=== PATIENT | male | born 1970 | race African-American/Black ===

== ENCOUNTER 2017-03-16 12:32 | Emergency (ER) | payer BC ==
[2017-03-16] MEDS ORDERED: Ketorolac Tromethamine 30 MG/ML VIAL ONE (13:11)
== END 2017-03-16 13:34 | disposition home or self-care (01) ==
LOC: ERS 12:32
DX: G89.29 Other chronic pain (principal); M79.672 Pain in left foot; Z71.6 Tobacco abuse counseling; F17.210 Nicotine dependence, cigarettes, uncomplicated
CPT/HCPCS: 96372; 99406; J1885

== ENCOUNTER 2019-10-21 14:34 | Emergency (ER) | payer BC ==
[2019-10-21] MEDS ORDERED: Ibuprofen 200 MG TAB ONE (15:29)
[2019-10-21] MEDS ORDERED: Acetaminophen 500 MG TAB ONE (15:29)
== END 2019-10-21 15:36 | disposition home or self-care (01) ==
LOC: ERS 14:34
DX: L30.9 Dermatitis, unspecified (principal); F17.210 Nicotine dependence, cigarettes, uncomplicated
CPT/HCPCS: 99282

== ENCOUNTER 2020-03-06 12:12 | Emergency (ER) | payer SELFPAY ==
[2020-03-06] MEDS ORDERED: Ibuprofen 200 MG TAB ONE (13:10)
== END 2020-03-06 13:10 | disposition home or self-care (01) ==
LOC: ERS 12:12
DX: M25.562 Pain in left knee (principal); M25.521 Pain in right elbow; M19.90 Unspecified osteoarthritis, unspecified site; F17.210 Nicotine dependence, cigarettes, uncomplicated
CPT/HCPCS: 99283

== ENCOUNTER 2020-10-02 18:36 | Inpatient (IN) | payer MEDICARE, MEDICAID ==
[2020-10-02 19:10] LABS: #Basophils 0.1 thou/uL (0.0-0.2); #Eosinphils 0.2 thou/uL (0.0-0.7); #Lymphocytes 2.6 thou/uL (1.20-3.40); #Monocytes 1.9 thou/uL (0.11-0.59); #Neutrophils 9.6 thou/uL (1.40-6.50); %Basophils 0.5 % (0.0-1.0); %Eosinophils 1.1 % (0.0-10.0); %Lymphocytes 18.2 % (21.0-51.0); %Monocytes 13.4 % (0.0-10.0); %Neutrophils 66.9 % (42.0-75.0); Hemoglobin 9.8 g/dL (14.0-18.0); Mean Corpuscular HGB CONC 33.8 g/dL (32.0-36.0); Mean Corpuscular Hemoglobin 26.3 pg (27.0-31.0); Mean Corpuscular Volume 77.7 fL (78.0-98.0); Mean Platelet Volume 6.9 fL (7.4-10.4); Platelet Count 935 thou/uL (130-400); RBC Distribution Width 16.8 % (11.5-14.5); Red Blood Cell (RBC) Count 3.73 mill/uL (4.70-6.10); White Blood Cell (WBC) Count 14.4 thou/uL (4.8-10.8)
[2020-10-02] MEDS ORDERED: Ketorolac Tromethamine 30 MG/ML VIAL ONE (19:10)
[2020-10-02 19:21] LABS: ALT (SGPT) 20 U/L (8-55); AST (SGOT) 14 U/L (5-34); Albumin 3.5 g/dL (3.5-5.0); Alkaline Phosphatase 71 U/L (40-110); Anion Gap 17 mmol/L (10-20); BUN (Urea Nitrogen) 15 mg/dL (8.4-25.7); Bilirubin, Total 0.4 mg/dL (0.2-1.2); Calc. Creatinine Clearance 0 mL/min (70-130); Calcium 9.6 mg/dL (7.8-10.44); Carbon Dioxide 24 mmol/L (22-29); Chloride 101 mmol/L (98-107); Globulin 4.6 g/dL (2.4-3.5); Glucose 82 mg/dL (70-105); Potassium 3.5 mmol/L (3.5-5.1); Protein, Total 8.1 g/dL (6.0-8.3); Sodium 138 mmol/L (136-145)
[2020-10-02 19:27] LABS: Hypochromia SLIGHT = 6-15 cells (100X) (0-5/hpf); MDiff Complete? YES; Microcytosis SLIGHT = 6-15 cells (100X) (0-5/hpf); Platelet Morphology Comment Appears Increased; Polychromasia SLIGHT = 2-3 cells (100X) (0-2/hpf)
[2020-10-02] MEDS ORDERED: Ondansetron PF 4 MG/2 ML Vial IVP PRN (23:24)
[2020-10-02] MEDS ORDERED: hydrALAZINE 20 MG/ML VIAL SLOW IVP PRN (23:24)
[2020-10-02] MEDS ORDERED: Labetalol HCl 100 MG/20 ML VIAL SLOW IVP PRN (23:24)
[2020-10-02] MEDS ORDERED: Promethazine HCl 12.5 MG in Sodium Chloride 0.9% 50 ML IVPB PRN (23:24)
[2020-10-02] MEDS ORDERED: cloNIDine 0.1 MG TAB PO PRN (23:24)
[2020-10-02] MEDS ORDERED: Electrolyte Replacement Protocol 1 EACH FS PRN (23:30)
[2020-10-03 01:03] VITALS: BMI 21.1
[2020-10-03 06:03] LABS: #Basophils 0.1 thou/uL (0.0-0.2); #Eosinphils 0.2 thou/uL (0.0-0.7); #Lymphocytes 2.5 thou/uL (1.20-3.40); #Monocytes 1.8 thou/uL (0.11-0.59); %Basophils 0.5 % (0.0-1.0); %Eosinophils 1.4 % (0.0-10.0); %Monocytes 14.4 % (0.0-10.0); %Neutrophils 63.8 % (42.0-75.0); Hemoglobin 9.3 g/dL (14.0-18.0); Mean Corpuscular HGB CONC 32.4 g/dL (32.0-36.0); Mean Corpuscular Hemoglobin 25.2 pg (27.0-31.0); Mean Corpuscular Volume 77.9 fL (78.0-98.0); Platelet Count 888 thou/uL (130-400); RBC Distribution Width 16.9 % (11.5-14.5); White Blood Cell (WBC) Count 12.6 thou/uL (4.8-10.8)
[2020-10-03] MEDS ORDERED: Potassium Chloride 20 MEQ TAB PO SCH (06:30)
[2020-10-03 06:33] LABS: Anion Gap 12 mmol/L (10-20); BUN (Urea Nitrogen) 15 mg/dL (8.4-25.7); CRP (Inflammatory) 14.62 mg/dL (= or < 0.5); Calc. Creatinine Clearance 120 mL/min (70-130); Calcium 9.2 mg/dL (7.8-10.44); Carbon Dioxide 26 mmol/L (22-29); Chloride 102 mmol/L (98-107); Glucose 80 mg/dL (70-105); Potassium 3.7 mmol/L (3.5-5.1); Sodium 136 mmol/L (136-145); Uric Acid 6.7 mg/dL (3.5-7.2)
[2020-10-03 08:50] LABS: Complement-C4 45.5 mg/dL (15-53)
[2020-10-03] MEDS: Potassium Chloride 20 MEQ TAB PO SCH ×2 (08:51→08:59)
[2020-10-03] MEDS: Famotidine 20 MG TAB PO SCH ×2 (08:53→20:15)
[2020-10-03] MEDS: pyridOXINE 50 MG (B6) TAB PO SCH (08:53)
[2020-10-03] MEDS: Cyanocobalamin (Vitamin B-12) 1,000 MCG TAB PO SCH (08:53)
[2020-10-03] MEDS: Thiamine 100 MG TAB PO SCH (08:53)
[2020-10-03] MEDS: Ascorbic Acid 500 mg Chewable Tablet PO SCH (08:53)
[2020-10-03] MEDS: Cholecalciferol 1,000 UNITS (25 MCG) TAB PO SCH (08:54)
[2020-10-03] MEDS: Multivit, Therapeutic 1 TAB PO SCH (08:54)
[2020-10-03] MEDS: Vitamin A 10,000 UNITS CAP PO SCH (08:54)
[2020-10-03] MEDS: Acetaminophen 325 MG TAB PO PRN (09:02)
[2020-10-03 09:04] LABS: HBSAg Index 0.21 S/CO (0-0.99); Hep A IgM AB Non-Reactive (NonReactive); Hep A IgM S/CO 0.25 S/CO (0-0.79); Hep B Surf Ag Non-Reactive S/CO (NonReactive); Hep C IgG Ab Non-Reactive (NonReactive)
[2020-10-03 09:07] LABS: Syphilis Antibody Index 2.02 S/CO (<1.00 Non-Reactive)
[2020-10-03 09:24] LABS: HBCM Index 1.73 S/CO (0-0.79); Hepatitis B Core IgM Abs Reactive (NonReactive)
[2020-10-03 12:14] LABS: SARS-CoV-2 PCR by NAA Not Detected (NotDetected)
[2020-10-03 12:21] LABS: Syphilis Antibody INDETERMINATE (Nonreactive)
[2020-10-03] MEDS: Ibuprofen 200 MG TAB PO PRN ×2 (13:41→20:16)
[2020-10-03 18:24] LABS: Bacteria/HPF None Seen HPF (None Seen); Bilirubin Negative (Negative); Blood, Urine Negative (Negative); Clarity Clear (Clear); Glucose, Urine (Dipstick) Normal (Negative); Ketone, Urine Negative (Negative); Leukocyte 250 Leu/uL (Negative); Nitrite Negative (Negative); Protein, Urine (Dipstick) 10 mg/dL (Neg-Trace); RBC/HPF 0-3 HPF (0-3); Specific Gravity, Urine 1.019 (1.002-1.036); Squamous Epithelial 0-3 HPF (0-3)
[2020-10-03 18:26] LABS: Urine Culture Reflex Yes Yes
[2020-10-03 20:12] LABS: HBSAg Index 0.19 S/CO (0-0.99); Hep B Surf Ag Non-Reactive S/CO (NonReactive)
[2020-10-03] MEDS: Enoxaparin Sodium 40 MG/0.4 ML SYRINGE SC SCH (20:15)
[2020-10-03 20:20] LABS: HBSAB Concentration 835.63 mIU/mL; Hep B Surf AB Reactive (NonReactive)
[2020-10-04 00:55] LABS: Hep B Core Total Ab Reactive (NonReactive)
[2020-10-04 01:02] LABS: Hep B Core Total Index 7.35 S/CO (0-0.79)
[2020-10-04] MEDS: Ibuprofen 200 MG TAB PO PRN (04:21)
[2020-10-04] MEDS: Ascorbic Acid 500 mg Chewable Tablet PO SCH (07:58)
[2020-10-04] MEDS: Cholecalciferol 1,000 UNITS (25 MCG) TAB PO SCH (07:58)
[2020-10-04] MEDS: Multivit, Therapeutic 1 TAB PO SCH (07:58)
[2020-10-04] MEDS: Cyanocobalamin (Vitamin B-12) 1,000 MCG TAB PO SCH (07:59)
[2020-10-04] MEDS: Vitamin A 10,000 UNITS CAP PO SCH (07:59)
[2020-10-04] MEDS: pyridOXINE 50 MG (B6) TAB PO SCH (07:59)
[2020-10-04] MEDS: Famotidine 20 MG TAB PO SCH ×2 (07:59→21:37)
[2020-10-04] MEDS: Thiamine 100 MG TAB PO SCH (07:59)
[2020-10-04] MEDS: HYDROcodone/Acetaminophen 5/325 mg Tablet PO PRN ×2 (13:50→17:55)
[2020-10-04 17:48] LABS: HIV (1/2) Antibody/Antigen Non-Reactive (NonReactive); HIV 1/2 INDEX 0.08 S/CO (<1.00)
[2020-10-04] MEDS: Clobetasol 0.05% Cream 15 gm Tube TOP SCH (21:37)
[2020-10-04] MEDS: CeleCOXIB 100 MG CAP PO SCH (21:37)
[2020-10-04] MEDS: Enoxaparin Sodium 40 MG/0.4 ML SYRINGE SC SCH (21:38)
[2020-10-05] MEDS: Ascorbic Acid 500 mg Chewable Tablet PO SCH (08:32)
[2020-10-05] MEDS: Aspirin 81 mg Enteric Coated Tablet PO SCH (08:33)
[2020-10-05] MEDS: CeleCOXIB 100 MG CAP PO SCH ×2 (08:33→21:36)
[2020-10-05] MEDS: Cholecalciferol 1,000 UNITS (25 MCG) TAB PO SCH (08:35)
[2020-10-05] MEDS: Cyanocobalamin (Vitamin B-12) 1,000 MCG TAB PO SCH (08:36)
[2020-10-05] MEDS: Clobetasol 0.05% Cream 15 gm Tube TOP SCH ×2 (08:36→21:36)
[2020-10-05] MEDS: Famotidine 20 MG TAB PO SCH ×2 (08:37→21:37)
[2020-10-05] MEDS: Multivit, Therapeutic 1 TAB PO SCH (08:37)
[2020-10-05] MEDS: Thiamine 100 MG TAB PO SCH (08:38)
[2020-10-05] MEDS: pyridOXINE 50 MG (B6) TAB PO SCH (08:38)
[2020-10-05] MEDS: HYDROcodone/Acetaminophen 5/325 mg Tablet PO PRN ×2 (12:04→21:52)
[2020-10-05 16:02] LABS: ANA Symphony (Qualitative) Negative (Negative); ANA Symphony (Quantitative) 0.2 Ratio (< 0.7 Negative); CCP IgG Antibody 0.7 EliAU/mL (<7 Negative); EliA RAS New Method **** NEW METHOD ****; Rheumatoid Factor IgA Antibody 6.7 IU/mL (<14 Negative); Rheumatoid Factor IgM Antibody 0.7 IU/mL (<3.5 Negative); dsDNA IgG Antibody 1.5 IU/mL (<10 Negative)
[2020-10-05 17:09] LABS: EliA Vaculitis New Method **** NEW METHOD ****
[2020-10-05] MEDS: Enoxaparin Sodium 40 MG/0.4 ML SYRINGE SC SCH (21:36)
[2020-10-06 06:32] LABS: #Basophils 0.1 thou/uL (0.0-0.2); #Eosinphils 0.3 thou/uL (0.0-0.7); #Lymphocytes 2.4 thou/uL (1.20-3.40); #Monocytes 1.7 thou/uL (0.11-0.59); #Neutrophils 8.2 thou/uL (1.40-6.50); %Basophils 0.4 % (0.0-1.0); %Eosinophils 2.6 % (0.0-10.0); %Lymphocytes 18.9 % (21.0-51.0); %Monocytes 13.7 % (0.0-10.0); %Neutrophils 64.5 % (42.0-75.0); Hemoglobin 9.2 g/dL (14.0-18.0); Mean Corpuscular Hemoglobin 25.1 pg (27.0-31.0); Mean Corpuscular Volume 78.3 fL (78.0-98.0); Platelet Count 912 thou/uL (130-400); Red Blood Cell (RBC) Count 3.66 mill/uL (4.70-6.10); White Blood Cell (WBC) Count 12.7 thou/uL (4.8-10.8)
[2020-10-06 06:51] LABS: Anion Gap 15 mmol/L (10-20); BUN (Urea Nitrogen) 12 mg/dL (8.4-25.7); Calc. Creatinine Clearance 134 mL/min (70-130); Calcium 9.1 mg/dL (7.8-10.44); Carbon Dioxide 23 mmol/L (22-29); Chloride 101 mmol/L (98-107); Glucose 87 mg/dL (70-105); Potassium 3.4 mmol/L (3.5-5.1); Sodium 136 mmol/L (136-145)
[2020-10-06] MEDS ORDERED: Potassium Chloride 20 MEQ TAB PO SCH (08:15)
[2020-10-06] MEDS: Aspirin 81 mg Enteric Coated Tablet PO SCH (09:39)
[2020-10-06] MEDS: CeleCOXIB 100 MG CAP PO SCH ×2 (09:39→22:16)
[2020-10-06] MEDS: Ascorbic Acid 500 mg Chewable Tablet PO SCH (09:40)
[2020-10-06] MEDS: Cholecalciferol 1,000 UNITS (25 MCG) TAB PO SCH (09:40)
[2020-10-06] MEDS: Multivit, Therapeutic 1 TAB PO SCH (09:41)
[2020-10-06] MEDS: Thiamine 100 MG TAB PO SCH (09:41)
[2020-10-06] MEDS: Cyanocobalamin (Vitamin B-12) 1,000 MCG TAB PO SCH (09:41)
[2020-10-06] MEDS: Famotidine 20 MG TAB PO SCH ×2 (09:41→22:17)
[2020-10-06] MEDS: pyridOXINE 50 MG (B6) TAB PO SCH (09:41)
[2020-10-06 11:12] LABS: HBV as IU/mL HBV DNA not detected IU/mL (.); Hep B Surface AG-Rflx Sendout Negative (Negative); Hepatitis B Core Total Positive (Negative); Hepatitis B Surface AB-Sendout Reactive (.)
[2020-10-06] MEDS ORDERED: Betamethasone 0.1% Cream 15 GM TUBE TOP SCH (11:15)
[2020-10-06] MEDS: Clobetasol 0.05% Cream 15 gm Tube TOP SCH (14:03)
[2020-10-06] MEDS: HYDROcodone/Acetaminophen 5/325 mg Tablet PO PRN (14:25)
[2020-10-06] MEDS: Enoxaparin Sodium 40 MG/0.4 ML SYRINGE SC SCH (22:17)
[2020-10-06] MEDS: Betamethasone 0.1% Cream 15 GM TUBE TOP SCH (22:57)
[2020-10-07] MEDS: Betamethasone 0.1% Cream 15 GM TUBE TOP SCH ×3 (01:37→21:03)
[2020-10-07] MEDS: HYDROcodone/Acetaminophen 5/325 mg Tablet PO PRN (07:14)
[2020-10-07] MEDS: pyridOXINE 50 MG (B6) TAB PO SCH (08:36)
[2020-10-07] MEDS: CeleCOXIB 100 MG CAP PO SCH ×2 (08:36→21:00)
[2020-10-07] MEDS: Aspirin 81 mg Enteric Coated Tablet PO SCH (08:38)
[2020-10-07] MEDS: Thiamine 100 MG TAB PO SCH (08:38)
[2020-10-07] MEDS: Multivit, Therapeutic 1 TAB PO SCH (08:39)
[2020-10-07] MEDS: Cyanocobalamin (Vitamin B-12) 1,000 MCG TAB PO SCH (08:39)
[2020-10-07] MEDS: Cholecalciferol 1,000 UNITS (25 MCG) TAB PO SCH (08:39)
[2020-10-07] MEDS: Ascorbic Acid 500 mg Chewable Tablet PO SCH (08:39)
[2020-10-07] MEDS: Famotidine 20 MG TAB PO SCH ×2 (08:39→21:01)
[2020-10-07] MEDS: HYDROcodone/Acetaminophen 10/325 mg Tablet PO PRN (15:57)
[2020-10-07] MEDS: Enoxaparin Sodium 40 MG/0.4 ML SYRINGE SC SCH (21:01)
[2020-10-08] MEDS: HYDROcodone/Acetaminophen 10/325 mg Tablet PO PRN ×2 (05:22→08:59)
[2020-10-08] MEDS: CeleCOXIB 100 MG CAP PO SCH ×2 (08:49→20:54)
[2020-10-08] MEDS: Multivit, Therapeutic 1 TAB PO SCH (08:51)
[2020-10-08] MEDS: Famotidine 20 MG TAB PO SCH ×2 (08:51→20:54)
[2020-10-08] MEDS: Ascorbic Acid 500 mg Chewable Tablet PO SCH (08:52)
[2020-10-08] MEDS: Aspirin 81 mg Enteric Coated Tablet PO SCH (08:52)
[2020-10-08] MEDS: pyridOXINE 50 MG (B6) TAB PO SCH (08:52)
[2020-10-08] MEDS: Cyanocobalamin (Vitamin B-12) 1,000 MCG TAB PO SCH (08:52)
[2020-10-08] MEDS: Thiamine 100 MG TAB PO SCH (08:52)
[2020-10-08] MEDS: Cholecalciferol 1,000 UNITS (25 MCG) TAB PO SCH (08:52)
[2020-10-08] MEDS: Betamethasone 0.1% Cream 15 GM TUBE TOP SCH ×2 (08:53→20:55)
[2020-10-08 10:42] LABS: Fungus Stain Final report (.)
[2020-10-08] MEDS: Enoxaparin Sodium 40 MG/0.4 ML SYRINGE SC SCH (20:55)
[2020-10-08] MEDS: Acetaminophen 325 MG TAB PO PRN (20:56)
[2020-10-08 21:36] LABS: QuantiFERON-TB Gold Plus Negative (Negative)
[2020-10-09] MEDS: HYDROcodone/Acetaminophen 10/325 mg Tablet PO PRN ×3 (00:17→15:07)
[2020-10-09 08:39] LABS: Hemoglobin 10.1 g/dL (14.0-18.0); Mean Corpuscular HGB CONC 32.2 g/dL (32.0-36.0); Mean Corpuscular Hemoglobin 25.1 pg (27.0-31.0); Mean Corpuscular Volume 78.1 fL (78.0-98.0); Platelet Count 962 thou/uL (130-400); RBC Distribution Width 16.9 % (11.5-14.5); White Blood Cell (WBC) Count 20.2 thou/uL (4.8-10.8)
[2020-10-09 08:46] LABS: Anion Gap 17 mmol/L (10-20); BUN (Urea Nitrogen) 9 mg/dL (8.4-25.7); Calc. Creatinine Clearance 134 mL/min (70-130); Carbon Dioxide 23 mmol/L (22-29); Chloride 98 mmol/L (98-107); Glucose 77 mg/dL (70-105); Sodium 134 mmol/L (136-145)
[2020-10-09] MEDS: Aspirin 81 mg Enteric Coated Tablet PO SCH (08:54)
[2020-10-09] MEDS: Ascorbic Acid 500 mg Chewable Tablet PO SCH (08:55)
[2020-10-09] MEDS: CeleCOXIB 100 MG CAP PO SCH ×2 (08:56→20:26)
[2020-10-09 08:58] LABS: Band 2 % (5-11); Eosinophils 4 % (0-10); Lymphocytes 15 % (21-51); MDiff Complete? YES; Metamyelocyte 1 % (0-0); Microcytosis SLIGHT = 6-15 cells (100X) (0-5/hpf); Monocytes 5 % (0-10); Neutrophil 70 % (42-75); Platelet Morphology Comment Appears Increased; Polychromasia SLIGHT = 2-3 cells (100X) (0-2/hpf); Reactive Lymphocytes 3 % (0-10); Vacuoles SLIGHT
[2020-10-09] MEDS: pyridOXINE 50 MG (B6) TAB PO SCH (08:58)
[2020-10-09] MEDS: Thiamine 100 MG TAB PO SCH (08:58)
[2020-10-09] MEDS: Cyanocobalamin (Vitamin B-12) 1,000 MCG TAB PO SCH (08:58)
[2020-10-09] MEDS: Multivit, Therapeutic 1 TAB PO SCH (08:58)
[2020-10-09] MEDS: Famotidine 20 MG TAB PO SCH ×2 (08:58→20:27)
[2020-10-09] MEDS: Cholecalciferol 1,000 UNITS (25 MCG) TAB PO SCH (08:59)
[2020-10-09] MEDS: Betamethasone 0.1% Cream 15 GM TUBE TOP SCH ×2 (09:00→10:00)
[2020-10-09] MEDS: Enoxaparin Sodium 40 MG/0.4 ML SYRINGE SC SCH (20:27)
[2020-10-09] MEDS ORDERED: diphenhydrAMINE 50 MG/ML VIAL IVP SCH (21:30)
[2020-10-09] MEDS ORDERED: Acetaminophen 500 MG TAB PO SCH (21:30)
[2020-10-09] MEDS ORDERED: SODIUM CHLORIDE 0.9% IV SCH (21:30)
[2020-10-09] MEDS ORDERED: INFLIXIMAB DYYB IV SCH (21:30)
[2020-10-09] MEDS ORDERED: methylPREDNISolone Sod Succ 40 MG VIAL IVP SCH (21:45)
[2020-10-10] MEDS: Betamethasone 0.1% Cream 15 GM TUBE TOP SCH ×3 (01:28→20:39)
[2020-10-10] MEDS: Cyanocobalamin (Vitamin B-12) 1,000 MCG TAB PO SCH (08:00)
[2020-10-10] MEDS: Multivit, Therapeutic 1 TAB PO SCH (08:00)
[2020-10-10] MEDS: Cholecalciferol 1,000 UNITS (25 MCG) TAB PO SCH (08:00)
[2020-10-10] MEDS: Ascorbic Acid 500 mg Chewable Tablet PO SCH (08:00)
[2020-10-10] MEDS: CeleCOXIB 100 MG CAP PO SCH ×2 (08:01→20:29)
[2020-10-10] MEDS: Thiamine 100 MG TAB PO SCH (08:01)
[2020-10-10] MEDS: Famotidine 20 MG TAB PO SCH ×2 (08:01→20:29)
[2020-10-10] MEDS: pyridOXINE 50 MG (B6) TAB PO SCH (08:01)
[2020-10-10] MEDS: Aspirin 81 mg Enteric Coated Tablet PO SCH (08:02)
[2020-10-10] MEDS: HYDROcodone/Acetaminophen 10/325 mg Tablet PO PRN (08:11)
[2020-10-10] MEDS: Enoxaparin Sodium 40 MG/0.4 ML SYRINGE SC SCH (20:39)
[2020-10-11] MEDS: HYDROcodone/Acetaminophen 10/325 mg Tablet PO PRN ×2 (04:56→17:44)
[2020-10-11] MEDS: Cholecalciferol 1,000 UNITS (25 MCG) TAB PO SCH (08:18)
[2020-10-11] MEDS: Cyanocobalamin (Vitamin B-12) 1,000 MCG TAB PO SCH (08:18)
[2020-10-11] MEDS: CeleCOXIB 100 MG CAP PO SCH ×2 (08:18→21:28)
[2020-10-11] MEDS: Betamethasone 0.1% Cream 15 GM TUBE TOP SCH ×2 (08:18→21:29)
[2020-10-11] MEDS: Ascorbic Acid 500 mg Chewable Tablet PO SCH (08:19)
[2020-10-11] MEDS: Multivit, Therapeutic 1 TAB PO SCH (08:19)
[2020-10-11] MEDS: Aspirin 81 mg Enteric Coated Tablet PO SCH (08:20)
[2020-10-11] MEDS: Famotidine 20 MG TAB PO SCH ×2 (08:20→21:29)
[2020-10-11] MEDS: Thiamine 100 MG TAB PO SCH (08:20)
[2020-10-11] MEDS: Enoxaparin Sodium 40 MG/0.4 ML SYRINGE SC SCH (21:29)
[2020-10-12] MEDS: Ascorbic Acid 500 mg Chewable Tablet PO SCH (08:30)
[2020-10-12] MEDS: HYDROcodone/Acetaminophen 10/325 mg Tablet PO PRN (08:30)
[2020-10-12] MEDS: Aspirin 81 mg Enteric Coated Tablet PO SCH (08:30)
[2020-10-12] MEDS: CeleCOXIB 100 MG CAP PO SCH ×2 (08:30→21:14)
[2020-10-12] MEDS: Multivit, Therapeutic 1 TAB PO SCH (08:31)
[2020-10-12] MEDS: Cyanocobalamin (Vitamin B-12) 1,000 MCG TAB PO SCH (08:31)
[2020-10-12] MEDS: Famotidine 20 MG TAB PO SCH ×2 (08:31→21:15)
[2020-10-12] MEDS: Betamethasone 0.1% Cream 15 GM TUBE TOP SCH ×2 (08:31→21:14)
[2020-10-12] MEDS: Thiamine 100 MG TAB PO SCH (08:31)
[2020-10-12] MEDS: Cholecalciferol 1,000 UNITS (25 MCG) TAB PO SCH (08:35)
[2020-10-12 08:49] LABS: #Basophils 0.1 thou/uL (0.0-0.2); #Eosinphils 0.3 thou/uL (0.0-0.7); #Monocytes 1.3 thou/uL (0.11-0.59); #Neutrophils 9.5 thou/uL (1.40-6.50); %Basophils 0.7 % (0.0-1.0); %Eosinophils 1.7 % (0.0-10.0); %Lymphocytes 26.5 % (21.0-51.0); %Monocytes 8.5 % (0.0-10.0); %Neutrophils 62.6 % (42.0-75.0); ALT (SGPT) 35 U/L (8-55); AST (SGOT) 27 U/L (5-34); Albumin 3.5 g/dL (3.5-5.0); Alkaline Phosphatase 68 U/L (40-110); Anion Gap 17 mmol/L (10-20); BUN (Urea Nitrogen) 16 mg/dL (8.4-25.7); Bilirubin, Total Less than 0.2 mg/dL (0.2-1.2); Calc. Creatinine Clearance 129 mL/min (70-130); Calcium 9.8 mg/dL (7.8-10.44); Carbon Dioxide 23 mmol/L (22-29); Chloride 103 mmol/L (98-107); Globulin 4.6 g/dL (2.4-3.5); Glucose 75 mg/dL (70-105); Hemoglobin 9.1 g/dL (14.0-18.0); Mean Corpuscular HGB CONC 31.6 g/dL (32.0-36.0); Mean Corpuscular Hemoglobin 24.8 pg (27.0-31.0); Mean Corpuscular Volume 78.6 fL (78.0-98.0); Mean Platelet Volume 6.7 fL (7.4-10.4); Platelet Count 987 thou/uL (130-400); Protein, Total 8.1 g/dL (6.0-8.3); RBC Distribution Width 16.9 % (11.5-14.5); Red Blood Cell (RBC) Count 3.66 mill/uL (4.70-6.10); Sodium 139 mmol/L (136-145); White Blood Cell (WBC) Count 15.1 thou/uL (4.8-10.8)
[2020-10-12] MEDS: Enoxaparin Sodium 40 MG/0.4 ML SYRINGE SC SCH (21:14)
[2020-10-13] MEDS: CeleCOXIB 100 MG CAP PO SCH (07:52)
[2020-10-13] MEDS: Ascorbic Acid 500 mg Chewable Tablet PO SCH (07:53)
[2020-10-13] MEDS: Aspirin 81 mg Enteric Coated Tablet PO SCH (07:53)
[2020-10-13] MEDS: Multivit, Therapeutic 1 TAB PO SCH (07:54)
[2020-10-13] MEDS: Cyanocobalamin (Vitamin B-12) 1,000 MCG TAB PO SCH (07:54)
[2020-10-13] MEDS: Famotidine 20 MG TAB PO SCH (07:54)
[2020-10-13] MEDS: Betamethasone 0.1% Cream 15 GM TUBE TOP SCH (07:54)
[2020-10-13] MEDS: Thiamine 100 MG TAB PO SCH (07:54)
[2020-10-13] MEDS: Cholecalciferol 1,000 UNITS (25 MCG) TAB PO SCH (07:54)
[2020-10-13 15:56] VITALS: BP 112/73; TEMP 98
== END 2020-10-13 18:42 | disposition swing bed (61) | DRG 546 ==
LOC: ERS 18:36 → T4-B 22:46 → OBSVTOIN 10-03 13:59
PROVIDERS: ADMIT Internal Medicine; ATTEND Internal Medicine
PROC: 0HBHXZX Excision of Right Upper Leg Skin, External Approach, Diagnostic (ICD-10-PCS; principal; 2020-10-06)
DX: L40.50 Arthropathic psoriasis, unspecified (principal); B16.9 Acute hepatitis B without delta-agent and without hepatic coma; Z20.822 Contact with and (suspected) exposure to COVID-19; T74.01XA Adult neglect or abandonment, confirmed, initial encounter; E44.0 Moderate protein-calorie malnutrition; F32.9 Major depressive disorder, single episode, unspecified; L30.9 Dermatitis, unspecified; F17.210 Nicotine dependence, cigarettes, uncomplicated; B35.1 Tinea unguium; D64.9 Anemia, unspecified; A53.9 Syphilis, unspecified; R62.7 Adult failure to thrive; Z68.21 Body mass index [BMI] 21.0-21.9, adult; Z59.0 Homelessness
CPT/HCPCS: 36415; 71045; 80048; 80053; 80074; 81001; 81270; 81374; 82595; 83516; 83520; 84550; 85025; 85652; 86038; 86140; 86160; 86162; 86200; 86225; 86480; 86593; 86704; 86705; 86706; 86707; 86780; 87086; 87102; 87206; 87340; 87350; 87389; 87517; 88305; G0378; J1200; J1650; J1885; J2920; J7050; Q5103; U0003; U0005

== ENCOUNTER 2020-10-24 10:01 | Day surgery (SDC) | payer MEDICARE, MEDICAID ==
[~2020-10-24 10:01] MED LIST: Acetaminophen 500 MG TAB PO SCH; INFLIXIMAB DYYB IV SCH; SODIUM CHLORIDE 0.9% IV SCH; diphenhydrAMINE 25 MG CAP PO SCH; diphenhydrAMINE 50 MG/ML VIAL IVP SCH
[2020-10-24 10:39] VITALS: BP 104/72; TEMP 98.2
== END 2020-10-24 12:57 | disposition home or self-care (01) ==
LOC: ONC/OP 10:01
PROVIDERS: ATTEND Internal Medicine Rheumatology
DX: L40.50 Arthropathic psoriasis, unspecified (principal)
CPT/HCPCS: 96413; 96415; J7050; Q0163; Q5103

== ENCOUNTER 2021-04-14 01:45 | Emergency (ER) | payer MEDICARE, MEDICAID | END 2021-04-14 04:56 | disposition home or self-care (01) | LOC: ERS 01:45 | DX: L40.50 Arthropathic psoriasis, unspecified (principal); F17.210 Nicotine dependence, cigarettes, uncomplicated | CPT/HCPCS: 99283 ==

== ENCOUNTER 2021-05-15 01:15 | Inpatient (IN) | payer MEDICARE, MEDICAID ==
[2021-05-15 02:19] LABS: #Basophils 0.1 thou/uL (0.0-0.2); #Monocytes 0.5 thou/uL (0.11-0.59); #Neutrophils 10.5 thou/uL (1.40-6.50); %Basophils 0.4 % (0.0-1.0); %Eosinophils 0.1 % (0.0-10.0); %Lymphocytes 8.4 % (21.0-51.0); %Monocytes 4.2 % (0.0-10.0); %Neutrophils 86.8 % (42.0-75.0); Hemoglobin 13.1 g/dL (14.0-18.0); Mean Corpuscular HGB CONC 33.7 g/dL (32.0-36.0); Mean Corpuscular Hemoglobin 30.8 pg (27.0-31.0); Mean Corpuscular Volume 91.6 fL (78.0-98.0); Mean Platelet Volume 7.6 fL (7.4-10.4); Platelet Count 327 thou/uL (130-400); RBC Distribution Width 11.5 % (11.5-14.5); Red Blood Cell (RBC) Count 4.24 mill/uL (4.70-6.10); White Blood Cell (WBC) Count 12.1 thou/uL (4.8-10.8)
[2021-05-15] MEDS ORDERED: Cefepime 2 GM VIAL ONE (02:41)
[2021-05-15 02:42] LABS: ALT (SGPT) 31 U/L (8-55); AST (SGOT) 28 U/L (5-34); Alkaline Phosphatase 72 U/L (40-110); Anion Gap 18 mmol/L (10-20); BUN (Urea Nitrogen) 11 mg/dL (8.4-25.7); Bilirubin, Total 0.3 mg/dL (0.2-1.2); Calc. Creatinine Clearance 0 mL/min (70-130); Calcium 9.2 mg/dL (7.8-10.44); Carbon Dioxide 19 mmol/L (22-29); Chloride 99 mmol/L (98-107); Globulin 4.3 g/dL (2.4-3.5); Glucose 107 mg/dL (70-105); Potassium 4.1 mmol/L (3.5-5.1); Protein, Total 8.3 g/dL (6.0-8.3); Sodium 132 mmol/L (136-145)
[2021-05-15 05:23] LABS: Lactic Acid 2.2 mmol/L (0.5-2.2)
[2021-05-15] MEDS: Acetaminophen 325 MG TAB PO PRN (09:00)
[2021-05-15] MEDS ORDERED: Acetaminophen 325 MG TAB ONE (09:08)
[2021-05-15] MEDS ORDERED: Calcium Carbonate 500 MG ChewTAB PO PRN (10:28)
[2021-05-15] MEDS ORDERED: Guaifenesin DM 100-10/5 ML UDCUP PO PRN (10:28)
[2021-05-15] MEDS ORDERED: Bisacodyl 10 MG SUPP PR PRN (10:28)
[2021-05-15] MEDS ORDERED: Ondansetron PF 4 MG/2 ML Vial IVP PRN (10:28)
[2021-05-15] MEDS ORDERED: HYDROcodone/Acetaminophen 10/325 mg Tablet ONE (11:50)
[2021-05-15] MEDS: HYDROcodone/Acetaminophen 10/325 mg Tablet PO PRN ×3 (11:51→22:09)
[2021-05-15] MEDS ORDERED: Vancomycin 1.5 GRAM/300 ML BAG 1.5 GM in Premix Bag 1 BAG IVPB SCH (12:15)
[2021-05-15 14:04] VITALS: BMI 21.7
[2021-05-15] MEDS: Cefepime 1 GM in Sodium Chloride 0.9% 100 ML IVPB SCH (17:21)
[2021-05-15 19:24] LABS: SARS-CoV-2 NAA Rapid Test DETECTED (NotDetected)
[2021-05-15] MEDS: Senokot S 8.6-50 MG TAB PO SCH (20:18)
[2021-05-15] MEDS ORDERED: Vancomycin 1 GM in Premix Bag 1 BAG IVPB SCH (21:00)
[2021-05-16] MEDS: VANCOMYCIN 1.75 GM/350 ML BAG 1.75 GM in Premix Bag 1 BAG IVPB SCH ×2 (01:53→12:14)
[2021-05-16] MEDS: HYDROcodone/Acetaminophen 10/325 mg Tablet PO PRN ×5 (01:53→23:25)
[2021-05-16] MEDS: Cefepime 1 GM in Sodium Chloride 0.9% 100 ML IVPB SCH ×2 (01:53→16:43)
[2021-05-16 06:30] LABS: #Basophils 0.1 thou/uL (0.0-0.2); #Eosinphils 0.3 thou/uL (0.0-0.7); #Lymphocytes 1.9 thou/uL (1.20-3.40); #Monocytes 1.3 thou/uL (0.11-0.59); #Neutrophils 7.1 thou/uL (1.40-6.50); %Basophils 0.5 % (0.0-1.0); %Eosinophils 2.7 % (0.0-10.0); %Lymphocytes 18.2 % (21.0-51.0); %Monocytes 12.1 % (0.0-10.0); %Neutrophils 66.5 % (42.0-75.0); Hemoglobin 11.3 g/dL (14.0-18.0); Mean Corpuscular Hemoglobin 31.4 pg (27.0-31.0); Mean Corpuscular Volume 92.2 fL (78.0-98.0); Platelet Count 302 thou/uL (130-400); RBC Distribution Width 11.4 % (11.5-14.5); Red Blood Cell (RBC) Count 3.59 mill/uL (4.70-6.10); White Blood Cell (WBC) Count 10.6 thou/uL (4.8-10.8)
[2021-05-16 06:41] LABS: ALT (SGPT) 26 U/L (8-55); Albumin 3.2 g/dL (3.5-5.0); Alkaline Phosphatase 63 U/L (40-110); Anion Gap 12 mmol/L (10-20); Calc. Creatinine Clearance 117 mL/min (70-130); Calcium 8.9 mg/dL (7.8-10.44); Carbon Dioxide 24 mmol/L (22-29); Chloride 104 mmol/L (98-107); Globulin 3.9 g/dL (2.4-3.5); Glucose 130 mg/dL (70-105); Potassium 3.9 mmol/L (3.5-5.1); Protein, Total 7.1 g/dL (6.0-8.3); Sodium 136 mmol/L (136-145)
[2021-05-16 06:51] LABS: AST (SGOT) 19 U/L (5-34); BUN (Urea Nitrogen) 13 mg/dL (8.4-25.7); Bilirubin, Total 0.4 mg/dL (0.2-1.2)
[2021-05-16] MEDS: Enoxaparin Sodium 40 MG/0.4 ML SYRINGE SC SCH (08:34)
[2021-05-16] MEDS: Cyanocobalamin (Vitamin B-12) 1,000 MCG TAB PO SCH (08:35)
[2021-05-16] MEDS: Senokot S 8.6-50 MG TAB PO SCH ×2 (08:35→20:54)
[2021-05-16] MEDS: Cholecalciferol 1,000 UNITS (25 MCG) TAB PO SCH (08:35)
[2021-05-16] MEDS: Aspirin 81 mg Enteric Coated Tablet PO SCH (08:35)
[2021-05-16] MEDS: Ascorbic Acid 500 mg Chewable Tablet PO SCH (08:35)
[2021-05-16] MEDS ORDERED: Labetalol HCl 100 MG/20 ML VIAL ONE (12:09)
[2021-05-16] MEDS: Triamcinolone 0.1% Cream 15 GM TUBE TOP SCH (20:54)
[2021-05-17 00:40] LABS: Vancomycin, Trough 14.6 ug/mL
[2021-05-17] MEDS: VANCOMYCIN 1.75 GM/350 ML BAG 1.75 GM in Premix Bag 1 BAG IVPB SCH ×2 (00:47→12:17)
[2021-05-17] MEDS: Cefepime 1 GM in Sodium Chloride 0.9% 100 ML IVPB SCH ×2 (03:35→14:54)
[2021-05-17] MEDS: HYDROcodone/Acetaminophen 10/325 mg Tablet PO PRN ×4 (04:17→23:58)
[2021-05-17] MEDS: Senokot S 8.6-50 MG TAB PO SCH ×2 (08:18→20:06)
[2021-05-17] MEDS: Cyanocobalamin (Vitamin B-12) 1,000 MCG TAB PO SCH (08:18)
[2021-05-17] MEDS: Ascorbic Acid 500 mg Chewable Tablet PO SCH (08:18)
[2021-05-17] MEDS: Aspirin 81 mg Enteric Coated Tablet PO SCH (08:18)
[2021-05-17] MEDS: Enoxaparin Sodium 40 MG/0.4 ML SYRINGE SC SCH (08:18)
[2021-05-17] MEDS: Cholecalciferol 1,000 UNITS (25 MCG) TAB PO SCH (08:18)
[2021-05-17] MEDS: Triamcinolone 0.1% Cream 15 GM TUBE TOP SCH ×2 (08:19→20:06)
[2021-05-18] MEDS: VANCOMYCIN 1.75 GM/350 ML BAG 1.75 GM in Premix Bag 1 BAG IVPB SCH ×2 (00:36→14:00)
[2021-05-18] MEDS: Cefepime 1 GM in Sodium Chloride 0.9% 100 ML IVPB SCH ×2 (03:51→16:39)
[2021-05-18] MEDS: HYDROcodone/Acetaminophen 10/325 mg Tablet PO PRN ×4 (04:37→20:58)
[2021-05-18] MEDS: Enoxaparin Sodium 40 MG/0.4 ML SYRINGE SC SCH (10:35)
[2021-05-18] MEDS: Ascorbic Acid 500 mg Chewable Tablet PO SCH (10:36)
[2021-05-18] MEDS: Aspirin 81 mg Enteric Coated Tablet PO SCH (10:36)
[2021-05-18] MEDS: Cyanocobalamin (Vitamin B-12) 1,000 MCG TAB PO SCH (10:36)
[2021-05-18] MEDS: Triamcinolone 0.1% Cream 15 GM TUBE TOP SCH ×2 (10:41→20:59)
[2021-05-18] MEDS: Cholecalciferol 1,000 UNITS (25 MCG) TAB PO SCH (10:56)
[2021-05-18] MEDS: Senokot S 8.6-50 MG TAB PO SCH ×2 (12:05→20:59)
[2021-05-19] MEDS: VANCOMYCIN 1.75 GM/350 ML BAG 1.75 GM in Premix Bag 1 BAG IVPB SCH ×2 (00:58→14:11)
[2021-05-19] MEDS: Cefepime 1 GM in Sodium Chloride 0.9% 100 ML IVPB SCH ×2 (03:42→18:16)
[2021-05-19] MEDS: HYDROcodone/Acetaminophen 10/325 mg Tablet PO PRN ×3 (04:26→22:15)
[2021-05-19] MEDS: Cyanocobalamin (Vitamin B-12) 1,000 MCG TAB PO SCH (08:00)
[2021-05-19] MEDS: Ascorbic Acid 500 mg Chewable Tablet PO SCH (08:00)
[2021-05-19] MEDS: Aspirin 81 mg Enteric Coated Tablet PO SCH (08:00)
[2021-05-19] MEDS: Cholecalciferol 1,000 UNITS (25 MCG) TAB PO SCH (08:00)
[2021-05-19] MEDS: Senokot S 8.6-50 MG TAB PO SCH ×2 (08:00→22:15)
[2021-05-19] MEDS: Triamcinolone 0.1% Cream 15 GM TUBE TOP SCH ×2 (09:49→22:17)
[2021-05-19] MEDS: Enoxaparin Sodium 40 MG/0.4 ML SYRINGE SC SCH (09:50)
[2021-05-20] MEDS: VANCOMYCIN 1.75 GM/350 ML BAG 1.75 GM in Premix Bag 1 BAG IVPB SCH ×2 (01:18→15:31)
[2021-05-20] MEDS: Cefepime 1 GM in Sodium Chloride 0.9% 100 ML IVPB SCH (03:21)
[2021-05-20] MEDS: HYDROcodone/Acetaminophen 10/325 mg Tablet PO PRN ×2 (05:12→15:20)
[2021-05-20] MEDS: Acetaminophen 325 MG TAB PO PRN (05:15)
[2021-05-20] MEDS: Aspirin 81 mg Enteric Coated Tablet PO SCH (09:49)
[2021-05-20] MEDS: Ascorbic Acid 500 mg Chewable Tablet PO SCH (09:49)
[2021-05-20] MEDS: Cholecalciferol 1,000 UNITS (25 MCG) TAB PO SCH (09:49)
[2021-05-20] MEDS: Enoxaparin Sodium 40 MG/0.4 ML SYRINGE SC SCH (09:50)
[2021-05-20] MEDS: Cyanocobalamin (Vitamin B-12) 1,000 MCG TAB PO SCH (09:50)
[2021-05-20] MEDS: Senokot S 8.6-50 MG TAB PO SCH ×2 (09:50→20:45)
[2021-05-20 13:07] LABS: Hemoglobin 10.8 g/dL (14.0-18.0); Mean Corpuscular HGB CONC 33.4 g/dL (32.0-36.0); Mean Corpuscular Hemoglobin 30.4 pg (27.0-31.0); Mean Corpuscular Volume 91.1 fL (78.0-98.0); Mean Platelet Volume 7.7 fL (7.4-10.4); Platelet Count 389 thou/uL (130-400); RBC Distribution Width 11.6 % (11.5-14.5); Red Blood Cell (RBC) Count 3.56 mill/uL (4.70-6.10)
[2021-05-20 13:23] LABS: Vancomycin, Trough 15.4 ug/mL
[2021-05-20 13:25] LABS: Anion Gap 13 mmol/L (10-20); BUN (Urea Nitrogen) 8 mg/dL (8.4-25.7); Calc. Creatinine Clearance 122 mL/min (70-130); Calcium 9.6 mg/dL (7.8-10.44); Carbon Dioxide 21 mmol/L (22-29); Chloride 103 mmol/L (98-107); Glucose 81 mg/dL (70-105); Potassium 3.8 mmol/L (3.5-5.1); Sodium 133 mmol/L (136-145)
[2021-05-20 14:30] LABS: Band 1 % (5-11); Eosinophils 4 % (0-10); Lymphocytes 18 % (21-51); MDiff Complete? YES; Monocytes 17 % (0-10); Neutrophil 56 % (42-75); Platelet Morphology Comment Appears Adequate; Polychromasia SLIGHT = 2-3 cells (100X) (0-2/hpf); Reactive Lymphocytes 3 % (0-10)
[2021-05-20] MEDS: Triamcinolone 0.1% Cream 15 GM TUBE TOP SCH ×2 (16:06→20:45)
[2021-05-21] MEDS: HYDROcodone/Acetaminophen 10/325 mg Tablet PO PRN ×3 (00:10→20:03)
[2021-05-21] MEDS: Ascorbic Acid 500 mg Chewable Tablet PO SCH (08:43)
[2021-05-21] MEDS: Senokot S 8.6-50 MG TAB PO SCH ×2 (08:43→20:03)
[2021-05-21] MEDS: Cholecalciferol 1,000 UNITS (25 MCG) TAB PO SCH (08:43)
[2021-05-21] MEDS: Aspirin 81 mg Enteric Coated Tablet PO SCH (08:43)
[2021-05-21] MEDS: Cyanocobalamin (Vitamin B-12) 1,000 MCG TAB PO SCH (08:43)
[2021-05-21] MEDS: Enoxaparin Sodium 40 MG/0.4 ML SYRINGE SC SCH (08:43)
[2021-05-21] MEDS: Triamcinolone 0.1% Cream 15 GM TUBE TOP SCH ×2 (08:44→20:04)
[2021-05-22] MEDS: Ascorbic Acid 500 mg Chewable Tablet PO SCH (08:35)
[2021-05-22] MEDS: Cyanocobalamin (Vitamin B-12) 1,000 MCG TAB PO SCH (08:36)
[2021-05-22] MEDS: HYDROcodone/Acetaminophen 10/325 mg Tablet PO PRN ×2 (08:36→16:54)
[2021-05-22] MEDS: Cholecalciferol 1,000 UNITS (25 MCG) TAB PO SCH (08:36)
[2021-05-22] MEDS: Enoxaparin Sodium 40 MG/0.4 ML SYRINGE SC SCH (08:36)
[2021-05-22] MEDS: Aspirin 81 mg Enteric Coated Tablet PO SCH (08:36)
[2021-05-22] MEDS: Senokot S 8.6-50 MG TAB PO SCH ×2 (08:36→20:42)
[2021-05-22] MEDS: Triamcinolone 0.1% Cream 15 GM TUBE TOP SCH ×2 (08:37→20:42)
[2021-05-23] MEDS: HYDROcodone/Acetaminophen 10/325 mg Tablet PO PRN ×3 (03:41→20:29)
[2021-05-23] MEDS: Ascorbic Acid 500 mg Chewable Tablet PO SCH (09:50)
[2021-05-23] MEDS: Senokot S 8.6-50 MG TAB PO SCH ×2 (09:50→20:28)
[2021-05-23] MEDS: Cholecalciferol 1,000 UNITS (25 MCG) TAB PO SCH (09:50)
[2021-05-23] MEDS: Cyanocobalamin (Vitamin B-12) 1,000 MCG TAB PO SCH (09:50)
[2021-05-23] MEDS: Aspirin 81 mg Enteric Coated Tablet PO SCH (09:50)
[2021-05-23] MEDS: Enoxaparin Sodium 40 MG/0.4 ML SYRINGE SC SCH (09:50)
[2021-05-23] MEDS: Triamcinolone 0.1% Cream 15 GM TUBE TOP SCH ×3 (09:51→20:29)
[2021-05-24] MEDS: HYDROcodone/Acetaminophen 10/325 mg Tablet PO PRN ×4 (00:21→20:26)
[2021-05-24] MEDS: Ascorbic Acid 500 mg Chewable Tablet PO SCH (09:59)
[2021-05-24] MEDS: Triamcinolone 0.1% Cream 15 GM TUBE TOP SCH ×2 (09:59→20:30)
[2021-05-24] MEDS: Senokot S 8.6-50 MG TAB PO SCH ×2 (09:59→20:26)
[2021-05-24] MEDS: Cyanocobalamin (Vitamin B-12) 1,000 MCG TAB PO SCH (09:59)
[2021-05-24] MEDS: Aspirin 81 mg Enteric Coated Tablet PO SCH (09:59)
[2021-05-24] MEDS: Cholecalciferol 1,000 UNITS (25 MCG) TAB PO SCH (09:59)
[2021-05-24] MEDS: Enoxaparin Sodium 40 MG/0.4 ML SYRINGE SC SCH (12:49)
[2021-05-25] MEDS: HYDROcodone/Acetaminophen 10/325 mg Tablet PO PRN ×4 (00:52→21:15)
[2021-05-25] MEDS: Ascorbic Acid 500 mg Chewable Tablet PO SCH (08:51)
[2021-05-25] MEDS: Enoxaparin Sodium 40 MG/0.4 ML SYRINGE SC SCH (08:51)
[2021-05-25] MEDS: Cholecalciferol 1,000 UNITS (25 MCG) TAB PO SCH (08:52)
[2021-05-25] MEDS: Aspirin 81 mg Enteric Coated Tablet PO SCH (08:52)
[2021-05-25] MEDS: Cyanocobalamin (Vitamin B-12) 1,000 MCG TAB PO SCH (08:52)
[2021-05-25] MEDS: Senokot S 8.6-50 MG TAB PO SCH ×2 (09:03→21:15)
[2021-05-25] MEDS: Triamcinolone 0.1% Cream 15 GM TUBE TOP SCH ×3 (10:58→21:17)
[2021-05-26] MEDS: HYDROcodone/Acetaminophen 10/325 mg Tablet PO PRN ×5 (00:47→23:55)
[2021-05-26] MEDS: Enoxaparin Sodium 40 MG/0.4 ML SYRINGE SC SCH (08:51)
[2021-05-26] MEDS: Cyanocobalamin (Vitamin B-12) 1,000 MCG TAB PO SCH (08:51)
[2021-05-26] MEDS: Aspirin 81 mg Enteric Coated Tablet PO SCH (08:51)
[2021-05-26] MEDS: Senokot S 8.6-50 MG TAB PO SCH ×2 (08:51→20:42)
[2021-05-26] MEDS: Cholecalciferol 1,000 UNITS (25 MCG) TAB PO SCH (08:51)
[2021-05-26] MEDS: Ascorbic Acid 500 mg Chewable Tablet PO SCH (08:51)
[2021-05-26] MEDS: Triamcinolone 0.1% Cream 15 GM TUBE TOP SCH ×2 (08:51→20:44)
[2021-05-26] MEDS: diphenhydrAMINE 25 MG CAP PO PRN (15:20)
[2021-05-26] MEDS: Aquaphor 85 GM TUBE TOP SCH (20:44)
[2021-05-27] MEDS: Ascorbic Acid 500 mg Chewable Tablet PO SCH (08:16)
[2021-05-27] MEDS: Cyanocobalamin (Vitamin B-12) 1,000 MCG TAB PO SCH (08:16)
[2021-05-27] MEDS: Aquaphor 85 GM TUBE TOP SCH ×2 (08:17→22:09)
[2021-05-27] MEDS: Aspirin 81 mg Enteric Coated Tablet PO SCH (08:17)
[2021-05-27] MEDS: Triamcinolone 0.1% Cream 15 GM TUBE TOP SCH ×2 (08:17→22:09)
[2021-05-27] MEDS: Cholecalciferol 1,000 UNITS (25 MCG) TAB PO SCH (08:17)
[2021-05-27] MEDS: Senokot S 8.6-50 MG TAB PO SCH ×2 (08:17→22:10)
[2021-05-27] MEDS: Enoxaparin Sodium 40 MG/0.4 ML SYRINGE SC SCH (08:17)
[2021-05-27] MEDS: HYDROcodone/Acetaminophen 10/325 mg Tablet PO PRN ×2 (10:38→16:53)
[2021-05-27] MEDS: diphenhydrAMINE 25 MG CAP PO PRN (16:53)
[2021-05-28] MEDS: HYDROcodone/Acetaminophen 10/325 mg Tablet PO PRN ×3 (01:12→19:42)
[2021-05-28] MEDS ORDERED: diphenhydrAMINE 50 MG CAP PO PRN (08:00)
[2021-05-28] MEDS ORDERED: methylPREDNISolone Sod Succ 40 MG VIAL IVP SCH (08:00)
[2021-05-28] MEDS ORDERED: Acetaminophen 500 MG TAB PO PRN (08:00)
[2021-05-28] MEDS: Enoxaparin Sodium 40 MG/0.4 ML SYRINGE SC SCH (09:28)
[2021-05-28] MEDS: Ascorbic Acid 500 mg Chewable Tablet PO SCH (09:29)
[2021-05-28] MEDS: Aspirin 81 mg Enteric Coated Tablet PO SCH (09:29)
[2021-05-28] MEDS: Cholecalciferol 1,000 UNITS (25 MCG) TAB PO SCH (09:31)
[2021-05-28] MEDS: Senokot S 8.6-50 MG TAB PO SCH ×2 (09:31→22:47)
[2021-05-28] MEDS: Cyanocobalamin (Vitamin B-12) 1,000 MCG TAB PO SCH (09:32)
[2021-05-28] MEDS ORDERED: INFLIXIMAB ABDA IVPB SCH (10:00)
[2021-05-28] MEDS ORDERED: SODIUM CHLORIDE 0.9% IVPB SCH (10:00)
[2021-05-28] MEDS: Aquaphor 85 GM TUBE TOP SCH ×2 (10:32→22:47)
[2021-05-28] MEDS: Triamcinolone 0.1% Cream 15 GM TUBE TOP SCH ×2 (10:33→22:47)
[2021-05-29] MEDS: Enoxaparin Sodium 40 MG/0.4 ML SYRINGE SC SCH (08:54)
[2021-05-29] MEDS: Senokot S 8.6-50 MG TAB PO SCH (08:55)
[2021-05-29] MEDS: Aspirin 81 mg Enteric Coated Tablet PO SCH (08:56)
[2021-05-29] MEDS: Cholecalciferol 1,000 UNITS (25 MCG) TAB PO SCH (08:58)
[2021-05-29] MEDS: Ascorbic Acid 500 mg Chewable Tablet PO SCH (08:58)
[2021-05-29] MEDS: Cyanocobalamin (Vitamin B-12) 1,000 MCG TAB PO SCH (08:58)
[2021-05-29] MEDS: Aquaphor 85 GM TUBE TOP SCH (08:59)
[2021-05-29] MEDS: Triamcinolone 0.1% Cream 15 GM TUBE TOP SCH (09:00)
[2021-05-29 16:15] VITALS: BP 121/72; TEMP 98.3
== END 2021-05-29 16:39 | disposition home health service (06) | DRG 545 ==
LOC: ERS 01:15 → ERHOLD 03:01 → SJJU 14:13
PROVIDERS: ADMIT Internal Medicine; ATTEND Internal Medicine
PROC: 8E0ZXY6 Isolation (ICD-10-PCS; principal; 2021-05-15)
DX: L40.50 Arthropathic psoriasis, unspecified (principal); U07.1 COVID-19; E44.0 Moderate protein-calorie malnutrition; L40.1 Generalized pustular psoriasis; F17.210 Nicotine dependence, cigarettes, uncomplicated; D64.9 Anemia, unspecified; Z79.52 Long term (current) use of systemic steroids; Z79.899 Other long term (current) drug therapy; Z68.21 Body mass index [BMI] 21.0-21.9, adult; Z91.14 Patient's other noncompliance with medication regimen
CPT/HCPCS: 36415; 80048; 80053; 80202; 83605; 85025; 85652; 86140; 87040; 96374; J0692; J1650; J2920; J3370; J3490; J7050; Q5104; U0002